=== PATIENT | female | born 1995 | race Caucasian/White ===

== ENCOUNTER 2021-05-30 02:42 | Emergency (ER) | payer SELFPAY ==
[~2021-05-30] VITALS: Ht 157.5 cm; Wt 58.5 kg
[2021-05-30 02:42] VITALS: BP_SYST 127
[2021-05-30] MEDS ORDERED: IBUPROFEN 600 MG TABLET ONE (03:50)
[2021-05-30] MEDS ORDERED: IBUPROFEN 600 MG TABLET PO ONE (04:00)
[2021-05-30] MEDS ORDERED: NAPR-686 PO (05:53)
[2021-05-30 06:00] VITALS: BP_SYST 99
== END 2021-05-30 06:00 | disposition home or self-care (01) ==
LOC: SED 02:42
DX: S06.0X0A Concussion without loss of consciousness, initial encounter (principal); S00.83XA Contusion of other part of head, initial encounter; F12.90 Cannabis use, unspecified, uncomplicated; Y04.0XXA Assault by unarmed brawl or fight, initial encounter; Y93.89 Activity, other specified; Y92.89 Other specified places as the place of occurrence of the external cause; Y99.8 Other external cause status
CPT/HCPCS: 99282